=== PATIENT | female | born 1970 | race Caucasian/White ===

== ENCOUNTER 2022-03-18 08:56 | Outpatient (CLI) | payer OTHER, SELFPAY ==
--- NOTE | 2022-03-18 09:00 | CRLHL7_ITS ---
For Patients: As a result of the Century Cures Act, medical imaging exams and procedure reports are released immediately into your electronic medical record. You may view this report before your referring provider. If you have questions, please contact your health care provider. INDICATION: Chronic sinusitis. COMPARISON: None. TECHNIQUE: A CT volumetric acquisition was performed without IV contrast. The CT data set was processed with 2.5 mm slice thickness and reviewed in an axial, sagittal and coronal plane of reformation. FINDINGS: CT images demonstrate normal aeration within the frontal, maxillary, ethmoid and sphenoid sinuses. One minor exception is trace mucosal thickening in the anterior inferior left maxillary sinus. The mucosal thickening measures 1-2 mm. The nasal septum is midline. The infundibular portion of the ostiomeatal complex is intact bilaterally. There are no areas of bone destruction. The mastoid air cells and middle ear cavities are clear. IMPRESSION: Trace mucosal thickening left inferior maxillary sinus. Otherwise normal sinuses. Please note that all CT scans at this facility use dose modulation, iterative reconstruction, and/or weight-based dosing when appropriate to reduce radiation dose to as low as reasonably achievable. Dictated by Jacobo Gannon MD @ 03/18/2022 9:28:48 AM (Electronically Signed)
== END 2022-03-18 08:57 | disposition home or self-care (01) ==
LOC: CT 08:57
PROVIDERS: PCP Nurse Practitioner Family; Visit Provider Nurse Practitioner Family
DX: J32.9 Chronic sinusitis, unspecified (principal); J32.0 Chronic maxillary sinusitis
CPT/HCPCS: 70486

== ENCOUNTER 2022-11-30 08:23 | Outpatient (CLI) | payer OTHER, SELFPAY ==
[2022-11-30 13:33] LABS: Basophils Absolute Auto 0.06 K/uL (0.00-0.30); Eosinophils Absolute Auto 0.14 K/uL (0.00-0.50); Eosinophils Percent Auto 2.3 % (0.0-7.0); Hematocrit 42.7 % (33.0-51.0); Hemoglobin* 14.1 gm/dL (12.0-16.0); Immature Granulocytes Abs Auto 0.01 K/uL (0.00-0.30); Immature Granulocytes Pct Auto 0.2 %; Lymphocytes Absolute Auto 1.49 K/uL (0.90-2.90); Lymphocytes Percent Auto 24.5 % (20-44); Mean Corpuscular HGB Conc 33 gm/dL (32-36); Mean Corpuscular Hemoglobin 31 pg (26-34); Mean Corpuscular Volume 94 fL (80-100); Monocytes Percent Auto 6.7 % (0.0-11.0); Neutrophils Absolute Auto 3.97 K/uL (1.7-7.0); Neutrophils Percent Auto 65.3 % (42.0-72.0); Platelet Count* 241 K/uL (140-440); RDW Coefficient of Variation % 12.3 % (11.5-15.5); Red Blood Count 4.54 m/uL (4.00-5.20); White Blood Count* 6.08 K/uL (4.50-11.00)
[2022-11-30 13:39] LABS: Slide Review Reflex No
[2022-11-30 13:43] LABS: Albumin* 4.6 g/dL (3.3-5.0); Chloride* 105 mmol/L (96-114)
[2022-11-30 13:44] LABS: Potassium* 4.3 mmol/L (3.6-5.1); Sodium* 137 mmol/L (135-149)
[2022-11-30 13:46] LABS: Aspartate Amino Transferase* 22 U/L (12-35); Bilirubin Total* 0.4 mg/dL (0.1-1.5); Carbon Dioxide* 25 mmol/L (20-32); Cholesterol* 221 mg/dL (90-199); Creatinine* 0.7 mg/dL (0.5-1.5); Estimated Glomerular Filt Rate 104 ml/min; Total Protein* 7.3 g/dL (6.0-8.3)
[2022-11-30 13:47] LABS: Alanine Aminotransferase* 20 U/L (4-35); Alkaline Phosphatase* 76 U/L (40-150); Blood Urea Nitrogen* 18 mg/dL (7-30); Calcium* 9.6 mg/dL (8.4-10.6); Glucose* 103 mg/dL (60-115); HDL Cholesterol* 64 mg/dL (>=50); LDL Cholesterol Calculated 124 mg/dL (<100); Triglycerides* 163 mg/dL (40-149)
== END 2022-11-30 08:24 | disposition home or self-care (01) ==
PROVIDERS: PCP Nurse Practitioner Family; Visit Provider Nurse Practitioner Family
DX: Z13.0 Encounter for screening for diseases of the blood and blood-forming organs and certain disorders involving the immune mechanism (principal); Z13.1 Encounter for screening for diabetes mellitus; Z13.6 Encounter for screening for cardiovascular disorders
CPT/HCPCS: 80053; 80061; 85025

== ENCOUNTER 2023-03-31 12:57 | Outpatient (CLI) | payer OTHER, SELFPAY ==
--- NOTE | 2023-03-31 13:00 | CRLHL7_ITS ---
For Patients: As a result of the Century Cures Act, medical imaging exams and procedure reports are released immediately into your electronic medical record. You may view this report before your referring provider. If you have questions, please contact your health care provider. BILATERAL SCREENING MAMMOGRAM WITH COMPUTER-AIDED DETECTION AND TOMOSYNTHESIS TECHNIQUE: CC and MLO views were obtained. These mammographic images have been obtained using full-field digital technique. These mammographic images were interpreted with the benefit of computer-aided detection. Breast Tomosynthesis was used in this interpretation. COMPARISON FILM: No comparison available. FINDINGS: The breasts are heterogeneously dense, which may obscure small masses IMPRESSION: There is no radiographic evidence for malignancy. ASSESSMENT: BI-RADS Category 1: Negative RECOMMENDATION: Routine screening mammogram in 1 year. A lay language report of this examination will be provided to the patient. Jacobo Gannon M.D. Diagnostic/Nuclear Medicine Radiologist [email or web address] LEANDRO/Dictated by: Jacobo Gannon MD @ 04/14/2023 8:25:00 AM (Electronically Signed)
== END 2023-03-31 12:58 | disposition home or self-care (01) ==
LOC: MAMMO 12:58
PROVIDERS: PCP Nurse Practitioner Family; Visit Provider Nurse Practitioner Family
DX: Z12.31 Encounter for screening mammogram for malignant neoplasm of breast (principal); R92.2 Inconclusive mammogram
CPT/HCPCS: 77063; 77067

== ENCOUNTER 2025-03-28 15:38 | Outpatient (CLI) | payer BC, SELFPAY | END 2025-03-28 15:39 | disposition home or self-care (01) | PROVIDERS: PCP Nurse Practitioner Family; Visit Provider Nurse Practitioner Family | DX: M25.50 Pain in unspecified joint (principal); Z11.8 Encounter for screening for other infectious and parasitic diseases | CPT/HCPCS: 85025; 85651; 86140; 86618 ==

== ENCOUNTER 2025-04-15 10:50 | Outpatient (CLI) | payer BC, SELFPAY | END 2025-04-15 10:51 | disposition home or self-care (01) | PROVIDERS: PCP Nurse Practitioner Family; Visit Provider Nurse Practitioner Family | DX: Z00.00 Encounter for general adult medical examination without abnormal findings (principal); E78.5 Hyperlipidemia, unspecified; Z79.899 Other long term (current) drug therapy | CPT/HCPCS: 80053; 80061; 82306; 82607 ==